=== PATIENT | male | born 1980 | race Asian ===

== ENCOUNTER 2017-05-10 14:12 | Inpatient (IN) | payer MEDICAID ==
[~2017-05-10] VITALS: Ht 165.1 cm; Wt 65.5 kg
[2017-05-10 14:55] LABS: BASOPHILS # (AUTO) 0.08 K/uL (0.00-0.20); EOSINOPHILS # (AUTO) 0.16 K/uL (0.00-0.70); EOSINOPHILS % (AUTO) 1.89 % (1.0-6.0); HEMATOCRIT 47.1 % (41-53); HEMOGLOBIN 16.1 g/dL (13.5-17.5); LYMPHOCYTES # (AUTO) 1.5 K/uL (1.0-4.8); LYMPHOCYTES % (AUTO) 17.6 % (22.0-44.0); MEAN CORPUSCULAR HEMOGLOBIN 30.3 pg (26.0-34.0); MEAN CORPUSCULAR HGB CONC 34.1 G/dL (31.0-37.0); MEAN CORPUSCULAR VOLUME 89 fL (80-100); MONOCYTES # (AUTO) 0.9 K/uL (0.1-1.0); MONOCYTES % (AUTO) 10.3 % (2.0-9.0); NEUTROPHILS # (AUTO) 5.7 K/uL (1.8-7.7); NEUTROPHILS % (AUTO) 69.2 % (40.0-70.0); PLATELET COUNT (AUTO) 303 K/uL (150-450); WHITE BLOOD COUNT (AUTO) 8.2 K/uL (4.5-11.0)
[2017-05-10 15:28] LABS: ANION GAP 7 mmol/L (8-16); CALCIUM, TOTAL 9.3 mg/dL (8.8-10.5); CARBON DIOXIDE 30 mmol/L (22-29); CHLORIDE 102 mmol/L (98-107); CREATININE 1.44 mg/dL (0.60-1.30); GLOMERULAR FILTR. RATE CALC 56 mL/min (>60); POTASSIUM 4.5 mmol/L (3.5-5.1); SODIUM SERUM 139 mmol/L (136-145); UREA NITROGEN, BLOOD 23 mg/dL (7-18)
[2017-05-10 15:35] LABS: ALANINE AMINOTRANSFERASE 45 U/L (12-78); ALBUMIN 4.1 g/dL (3.4-5.0); ASPARTATE AMINOTRANSFERASE 34 U/L (15-37); BILIRUBIN,TOTAL 0.7 mg/dL (0.1-1.0); TOTAL PROTEIN, SERUM 7.9 g/dL (6.4-8.2)
[2017-05-10] MEDS ORDERED: LORazepam 2 MG TABLET PO ONE (16:15)
[2017-05-10] MEDS ORDERED: HALOPERIDOL 5 MG TABLET PO ONE (16:15)
[2017-05-10] MEDS ORDERED: DiphenhydrAMINE HCL 50 MG CAPSULE PO ONE (16:15)
[2017-05-11 14:32] VITALS: BP 156/64
[2017-05-11 17:13] VITALS: BP 129/50
[2017-05-11] MEDS: QUEtiapine FUMARATE 25 MG TABLET PO SCH (17:29)
[2017-05-12 08:38] VITALS: BP 135/83
[2017-05-12] MEDS: QUEtiapine FUMARATE 25 MG TABLET PO SCH ×2 (09:41→16:08)
[2017-05-12] MEDS ORDERED: ONDANSETRON HCL 4 MG TABLET PO PRN (10:00)
[2017-05-12] MEDS ORDERED: PETROLATUM,WHITE 71 GM JELLY TP PRN (10:00)
[2017-05-12] MEDS ORDERED: MAG HYDROX/AL HYDROX/SIMETH ES 30 ML SUSPENSION UDCUP PO PRN (10:00)
[2017-05-12] MEDS ORDERED: ACETAMINOPHEN 325 MG TABLET PO PRN (10:00)
[2017-05-12] MEDS ORDERED: ALBUTEROL SULFATE HFA 90 MCG/PUFF 8 GM INHALER IH PRN (10:00)
[2017-05-12] MEDS ORDERED: CloNIDine HCL 0.1 MG TABLET PO PRN (10:00)
[2017-05-12] MEDS ORDERED: IBUPROFEN 600 MG TABLET PO PRN (10:00)
[2017-05-12] MEDS ORDERED: LOPERAMIDE HCL 2 MG CAPSULE PO PRN (10:00)
[2017-05-12] MEDS ORDERED: BACITRACIN 28.4 GM OINTMENT TP PRN (10:00)
[2017-05-12] MEDS ORDERED: MAGNESIUM HYDROXIDE SUSPENSION 30 ML UDCUP PO PRN (10:00)
[2017-05-12] MEDS ORDERED: BENZOCAINE/MENTHOL LOZENGE [8 LOZENGES/PACKET] MM PRN (10:15)
[2017-05-12 16:15] VITALS: BP 137/86
[2017-05-13 06:48] LABS: ANION GAP 6 mmol/L (8-16); CALCIUM, TOTAL 8.5 mg/dL (8.8-10.5); CARBON DIOXIDE 28 mmol/L (22-29); CHLORIDE 105 mmol/L (98-107); CHOL/HDL RATIO 3.4 (4.2-7.3); CREATININE 1.19 mg/dL (0.60-1.30); GLOMERULAR FILTR. RATE CALC > 60 mL/min (>60); POTASSIUM 4.3 mmol/L (3.5-5.1); SODIUM SERUM 139 mmol/L (136-145); THYROID STIMULATING HORMONE 0.91 uIU/mL (0.36-3.74); UREA NITROGEN, BLOOD 20 mg/dL (7-18)
[2017-05-13 08:57] VITALS: BP 131/74
[2017-05-13] MEDS: QUEtiapine FUMARATE 25 MG TABLET PO SCH ×2 (09:37→16:02)
[2017-05-13] MEDS: ASPIRIN 81 MG EC TABLET PO SCH (09:37)
[2017-05-13 17:12] VITALS: BP 154/104
[2017-05-14 08:35] VITALS: BP 148/98
[2017-05-14] MEDS: ASPIRIN 81 MG EC TABLET PO SCH (09:26)
[2017-05-14] MEDS: QUEtiapine FUMARATE 25 MG TABLET PO SCH ×2 (09:27→16:02)
[2017-05-14 17:18] VITALS: BP 147/102
[2017-05-15] MEDS: ASPIRIN 81 MG EC TABLET PO SCH (08:59)
[2017-05-15] MEDS: QUEtiapine FUMARATE 25 MG TABLET PO SCH ×2 (08:59→16:17)
[2017-05-15] MEDS: CHOLECALCIFEROL (VIT D3) 1,000 UNITS TABLET PO SCH (08:59)
[2017-05-15 09:19] VITALS: BP 150/97
[2017-05-15] MEDS: HALOPERIDOL 5 MG TABLET PO PRN (11:15)
[2017-05-15] MEDS: LORazepam 2 MG TABLET PO PRN (16:17)
[2017-05-15 19:01] VITALS: BP 150/90
[2017-05-16] MEDS: CHOLECALCIFEROL (VIT D3) 1,000 UNITS TABLET PO SCH (08:36)
[2017-05-16] MEDS: QUEtiapine FUMARATE 25 MG TABLET PO SCH ×2 (08:36→16:06)
[2017-05-16] MEDS: ASPIRIN 81 MG EC TABLET PO SCH (08:36)
[2017-05-16 08:45] VITALS: BP 155/91
[2017-05-16] MEDS: LORazepam 2 MG TABLET PO PRN (16:06)
[2017-05-16 16:18] VITALS: BP 154/89
[2017-05-17] VITALS: BP_SYST 161; BP_SYST 162; BP_DIAS 117; BP_DIAS 125
[2017-05-17] MEDS: ZOLPIDEM TARTRATE 10 MG TABLET PO PRN
[2017-05-17] MEDS: LORazepam 2 MG TABLET PO PRN
[2017-05-17 02:57] VITALS: BP 148/99
[2017-05-17 09:41] VITALS: BP 156/96
[2017-05-17] MEDS: LISINOPRIL 20 MG TABLET PO SCH (09:48)
[2017-05-17] MEDS: CHOLECALCIFEROL (VIT D3) 1,000 UNITS TABLET PO SCH (09:48)
[2017-05-17] MEDS: ASPIRIN 81 MG EC TABLET PO SCH (09:48)
[2017-05-17] MEDS: QUEtiapine FUMARATE 25 MG TABLET PO SCH ×2 (09:48→16:26)
[2017-05-17 17:21] VITALS: BP 126/76
[2017-05-18] MEDS: LISINOPRIL 20 MG TABLET PO SCH (09:00)
[2017-05-18] MEDS: ASPIRIN 81 MG EC TABLET PO SCH (09:00)
[2017-05-18] MEDS: CHOLECALCIFEROL (VIT D3) 1,000 UNITS TABLET PO SCH (09:00)
[2017-05-18] MEDS: QUEtiapine FUMARATE 25 MG TABLET PO SCH ×2 (09:00→16:13)
[2017-05-18 13:59] VITALS: BP 138/88
[2017-05-18 16:46] VITALS: BP 112/61
[2017-05-19 00:52] VITALS: BP 148/78
[2017-05-19] MEDS: LORazepam 2 MG TABLET PO PRN ×2 (01:01→16:20)
[2017-05-19] MEDS: ZOLPIDEM TARTRATE 10 MG TABLET PO PRN ×2 (01:02→21:48)
[2017-05-19] MEDS: CHOLECALCIFEROL (VIT D3) 1,000 UNITS TABLET PO SCH (09:27)
[2017-05-19] MEDS: ASPIRIN 81 MG EC TABLET PO SCH (09:27)
[2017-05-19] MEDS: LISINOPRIL 20 MG TABLET PO SCH (09:27)
[2017-05-19] MEDS: QUEtiapine FUMARATE 25 MG TABLET PO SCH ×2 (09:27→16:20)
[2017-05-19 09:58] VITALS: BP 138/87
[2017-05-19 16:30] VITALS: BP 132/76
[2017-05-19] MEDS: HALOPERIDOL 5 MG TABLET PO PRN (19:29)
[2017-05-20] MEDS: ASPIRIN 81 MG EC TABLET PO SCH (10:05)
[2017-05-20] MEDS: LISINOPRIL 20 MG TABLET PO SCH (10:05)
[2017-05-20] MEDS: CHOLECALCIFEROL (VIT D3) 1,000 UNITS TABLET PO SCH (10:05)
[2017-05-20] MEDS: QUEtiapine FUMARATE 25 MG TABLET PO SCH ×2 (10:05→16:21)
[2017-05-20 11:58] VITALS: BP 139/95
[2017-05-20] MEDS: LORazepam 2 MG TABLET PO PRN (16:22)
[2017-05-20 17:00] VITALS: BP 127/74
[2017-05-20] MEDS: HALOPERIDOL 5 MG TABLET PO PRN (18:45)
[2017-05-21 08:44] VITALS: BP 135/71
[2017-05-21] MEDS: ASPIRIN 81 MG EC TABLET PO SCH (09:00)
[2017-05-21] MEDS: CHOLECALCIFEROL (VIT D3) 1,000 UNITS TABLET PO SCH (09:00)
[2017-05-21] MEDS: QUEtiapine FUMARATE 25 MG TABLET PO SCH ×2 (09:00→16:59)
[2017-05-21] MEDS: LISINOPRIL 20 MG TABLET PO SCH (09:01)
[2017-05-21 17:00] VITALS: BP 116/69
[2017-05-21] MEDS: HALOPERIDOL 5 MG TABLET PO PRN (17:46)
[2017-05-22 08:35] VITALS: BP 132/86
[2017-05-22] MEDS: ASPIRIN 81 MG EC TABLET PO SCH (09:11)
[2017-05-22] MEDS: LISINOPRIL 20 MG TABLET PO SCH (09:11)
[2017-05-22] MEDS: CHOLECALCIFEROL (VIT D3) 1,000 UNITS TABLET PO SCH (09:11)
[2017-05-22] MEDS: QUEtiapine FUMARATE 25 MG TABLET PO SCH ×2 (09:11→16:05)
[2017-05-22 17:11] VITALS: BP 134/89
[2017-05-22] MEDS: HALOPERIDOL 5 MG TABLET PO PRN (18:17)
[2017-05-23] MEDS: LISINOPRIL 20 MG TABLET PO SCH (09:04)
[2017-05-23] MEDS: CHOLECALCIFEROL (VIT D3) 1,000 UNITS TABLET PO SCH (09:04)
[2017-05-23] MEDS: ASPIRIN 81 MG EC TABLET PO SCH (09:04)
[2017-05-23] MEDS: QUEtiapine FUMARATE 25 MG TABLET PO SCH (09:05)
[2017-05-23 09:07] VITALS: BP 135/86
[2017-05-23] MEDS ORDERED: QUET25TA PO (13:19)
[2017-05-23] MEDS ORDERED: VITAD1000 PO (13:20)
[2017-05-23] MEDS ORDERED: LISI-662 PO (13:21)
[2017-05-23] MEDS ORDERED: ASPI-1093 PO (13:21)
== END 2017-05-23 15:16 | disposition home or self-care (01) | DRG 750 ==
LOC: EMS 14:13 → EEVIPCON 14:13 → AHU 05-11 08:08 → 3EI 05-11 14:26
PROVIDERS: ADMIT Psychiatry & Neurology Child & Adolescent Psychiatry; ATTEND Psychiatry & Neurology Child & Adolescent Psychiatry
DX: F25.1 Schizoaffective disorder, depressive type (principal); N17.9 Acute kidney failure, unspecified; R45.851 Suicidal ideations; E55.9 Vitamin D deficiency, unspecified; F17.210 Nicotine dependence, cigarettes, uncomplicated; F15.10 Other stimulant abuse, uncomplicated; G47.00 Insomnia, unspecified; K21.9 Gastro-esophageal reflux disease without esophagitis; K59.00 Constipation, unspecified; Z79.82 Long term (current) use of aspirin; Z79.899 Other long term (current) drug therapy; Z86.73 Personal history of transient ischemic attack (TIA), and cerebral infarction without residual deficits; F41.9 Anxiety disorder, unspecified; Z59.0 Homelessness; R03.0 Elevated blood-pressure reading, without diagnosis of hypertension; Z72.89 Other problems related to lifestyle; Z71.41 Alcohol abuse counseling and surveillance of alcoholic; Z71.51 Drug abuse counseling and surveillance of drug abuser
CPT/HCPCS: 82306; 84439; 84443; 99291; 99406; G0480

== ENCOUNTER 2018-01-03 21:21 | Inpatient (IN) | payer MEDICARE, MEDICAID ==
[~2018-01-03] VITALS: Ht 165.1 cm; Wt 73.6 kg
[~2018-01-03 21:21] MED LIST: ASPI-1182 PO; LISI-662 PO; QUET25TA PO; VITAD1000 PO
[2018-01-03 21:57] LABS: BASOPHILS % (AUTO) 0.8 % (0.0-2.0); EOSINOPHILS % (AUTO) 2.1 % (1.0-6.0); HEMATOCRIT 45.7 % (41-53); HEMOGLOBIN 15.6 g/dL (13.5-17.5); LYMPHOCYTES # (AUTO) 1.9 K/uL (1.0-4.8); LYMPHOCYTES % (AUTO) 23.2 % (22.0-44.0); MEAN CORPUSCULAR HEMOGLOBIN 29.9 pg (26.0-34.0); MEAN CORPUSCULAR HGB CONC 34.1 G/dL (31.0-37.0); MEAN CORPUSCULAR VOLUME 88 fL (80-100); MONOCYTES # (AUTO) 0.7 K/uL (0.1-1.0); MONOCYTES % (AUTO) 8.6 % (2.0-9.0); NEUTROPHILS # (AUTO) 5.3 K/uL (1.8-7.7); NEUTROPHILS % (AUTO) 65.3 % (40.0-70.0); PLATELET COUNT (AUTO) 262 K/uL (150-450); RED CELL DISTRIBUTION WIDTH 12.9 % (11.5-14.5)
[2018-01-03 22:05] LABS: AMPHET/METH SCREEN,URINE NEGATIVE (NEGATIVE); BARBITURATE SCREEN, URINE NEGATIVE (NEGATIVE); BENZODIAZEPINES SCREEN,URINE NEGATIVE (NEGATIVE); CANNABINOID SCREEN,URINE NEGATIVE (NEGATIVE); COCAINE SCREEN,URINE NEGATIVE (NEGATIVE); METHADONE SCREEN, URINE NEGATIVE (NEGATIVE); OPIATE SCREEN,URINE NEGATIVE (NEGATIVE)
[2018-01-03 22:08] LABS: PHENCYCLIDINE SCREEN,URINE NEGATIVE (NEGATIVE)
[2018-01-03 22:16] LABS: ALANINE AMINOTRANSFERASE 27 U/L (12-78); ALBUMIN 4.2 g/dL (3.4-5.0); ALKALINE PHOSPHATASE 62 U/L (46-116); ANION GAP 8 mmol/L (8-16); ASPARTATE AMINOTRANSFERASE 21 U/L (15-37); BILIRUBIN,TOTAL 0.5 mg/dL (0.1-1.0); CARBON DIOXIDE 28 mmol/L (22-29); CHLORIDE 99 mmol/L (98-107); CREATININE 1.18 mg/dL (0.60-1.30); GLOMERULAR FILTR. RATE CALC > 60 mL/min (>60); GLUCOSE,RANDOM 124 mg/dL (70-110); POTASSIUM 3.4 mmol/L (3.5-5.1); SODIUM SERUM 135 mmol/L (136-145); TOTAL PROTEIN, SERUM 8.4 g/dL (6.4-8.2)
[2018-01-03 22:30] LABS: ACETAMINOPHEN < 2 mcg/mL (10-30); SALICYLATE 1.2 mg/dL (2.8-20.0)
[2018-01-03 22:51] LABS: UREA NITROGEN, BLOOD 29 mg/dL (7-18)
[2018-01-03] MEDS ORDERED: QUEtiapine FUMARATE 100 MG TABLET PO PRN (23:00)
[2018-01-03] MEDS ORDERED: LORazepam 2 MG TABLET PO PRN (23:00)
[2018-01-03] MEDS ORDERED: ZOLPIDEM TARTRATE 10 MG TABLET PO PRN (23:00)
[2018-01-03 23:50] LABS: CREATINE KINASE MB 2.2 ng/mL (0-5); CREATINE KINASE, TOTAL 210 U/L (39-308)
[2018-01-04] MEDS ORDERED: POTASSIUM CHLORIDE 10 MEQ ER TABLET PO ONE (03:15)
[2018-01-04] MEDS ORDERED: POTASSIUM CHLORIDE 20 MEQ ER TABLET PO ONE (03:15)
[2018-01-04 03:30] LABS: ANION GAP 10 mmol/L (8-16); CALCIUM, TOTAL 8.7 mg/dL (8.8-10.5); CARBON DIOXIDE 28 mmol/L (22-29); CHLORIDE 100 mmol/L (98-107); CREATININE 1.11 mg/dL (0.60-1.30); GLOMERULAR FILTR. RATE CALC > 60 mL/min (>60); GLUCOSE,RANDOM 116 mg/dL (70-110); POTASSIUM 3.4 mmol/L (3.5-5.1); SODIUM SERUM 138 mmol/L (136-145); UREA NITROGEN, BLOOD 26 mg/dL (7-18)
[2018-01-04 03:54] LABS: CHOL/HDL RATIO 3.1 (4.2-7.3); CHOLESTEROL 148 mg/dL (131-200); CREATINE KINASE MB 2.1 ng/mL (0-5); CREATINE KINASE, TOTAL 185 U/L (39-308); HDL CHOLESTEROL 47 mg/dL (40-60); LDL CHOL (CALC.) 69 mg/dL (0-130); TRIGLYCERIDES 162 mg/dL (15-150)
[2018-01-04 04:18] VITALS: BP 140/96
[2018-01-04] MEDS ORDERED: PNEUMOCOCCAL VACCINE POLYVALENT 0.5 ML VIAL [PPSV23] IM ONE (06:30)
[2018-01-04] MEDS ORDERED: SERTRALINE HCL 50 MG TABLET PO SCH (09:00)
[2018-01-04 10:16] VITALS: BP 122/59
[2018-01-04] MEDS ORDERED: PROMETHAZINE HCL 25 MG TABLET PO PRN (12:00)
[2018-01-04] MEDS ORDERED: MAGNESIUM HYDROXIDE SUSPENSION 30 ML UDCUP PO PRN (12:00)
[2018-01-04] MEDS ORDERED: GuaiFENesin/D-METHORPHAN [SUGAR-FREE] 200-20MG/10 ML SYRUP UDCUP PO PRN (12:00)
[2018-01-04] MEDS ORDERED: LOPERAMIDE HCL 2 MG CAPSULE PO PRN (12:00)
[2018-01-04] MEDS ORDERED: HydrOXYzine PAMOATE 50 MG CAPSULE PO PRN (12:00)
[2018-01-04] MEDS ORDERED: MAG HYDROX/AL HYDROX/SIMETH ES 30 ML SUSPENSION UDCUP PO PRN (12:00)
[2018-01-04] MEDS ORDERED: TUBERCULIN, PURIFIED PROTEIN DERIVATIVE 5 TU/0.1 ML SYG ID ONE (12:00)
[2018-01-04] MEDS ORDERED: ACETAMINOPHEN 325 MG TABLET PO PRN (12:00)
[2018-01-04] MEDS: THIAMINE HCL 100 MG TABLET PO SCH (16:23)
[2018-01-04 19:01] VITALS: BP 145/90
[2018-01-04] MEDS: DIVALPROEX SODIUM 500 MG ER TABLET PO SCH (20:28)
[2018-01-04] MEDS ORDERED: QUEtiapine FUMARATE 100 MG TABLET PO SCH (21:00)
[2018-01-05] MEDS: NALTREXONE HCL 50 MG TABLET PO SCH (08:14)
[2018-01-05] MEDS: THIAMINE HCL 100 MG TABLET PO SCH ×2 (08:14→16:38)
[2018-01-05] MEDS: MULTIVITAMINS WITH MINERALS, THERAPEUTIC TABLET PO SCH (08:14)
[2018-01-05] MEDS: FOLIC ACID 1 MG TABLET PO SCH (08:14)
[2018-01-05 08:41] VITALS: BP 141/81
[2018-01-05] MEDS ORDERED: DULoxetine HCL 20 MG CAPSULE PO SCH (09:00)
[2018-01-05 16:22] VITALS: BP 137/85
[2018-01-05] MEDS: DIVALPROEX SODIUM 500 MG ER TABLET PO SCH (20:27)
[2018-01-05] MEDS ORDERED: QUEtiapine FUMARATE 300 MG TABLET PO SCH (21:00)
[2018-01-06] MEDS: FOLIC ACID 1 MG TABLET PO SCH (08:02)
[2018-01-06] MEDS: THIAMINE HCL 100 MG TABLET PO SCH ×2 (08:02→17:50)
[2018-01-06] MEDS: NALTREXONE HCL 50 MG TABLET PO SCH (08:02)
[2018-01-06] MEDS: MULTIVITAMINS WITH MINERALS, THERAPEUTIC TABLET PO SCH (08:02)
[2018-01-06 08:06] VITALS: BP 101/67
[2018-01-06] MEDS ORDERED: DULoxetine HCL 30 MG CAPSULE PO SCH (09:00)
[2018-01-06 18:07] VITALS: BP 110/74
[2018-01-06] MEDS: DIVALPROEX SODIUM 500 MG ER TABLET PO SCH (20:30)
[2018-01-06] MEDS: QUEtiapine FUMARATE 200 MG TABLET PO SCH (20:30)
[2018-01-07] MEDS: NALTREXONE HCL 50 MG TABLET PO SCH (08:14)
[2018-01-07] MEDS: DULoxetine HCL 20 MG CAPSULE PO SCH (08:14)
[2018-01-07] MEDS: MULTIVITAMINS WITH MINERALS, THERAPEUTIC TABLET PO SCH (08:14)
[2018-01-07] MEDS: THIAMINE HCL 100 MG TABLET PO SCH ×2 (08:14→16:08)
[2018-01-07] MEDS: FOLIC ACID 1 MG TABLET PO SCH (08:14)
[2018-01-07 08:15] VITALS: BP 109/69
[2018-01-07 20:23] VITALS: BP 111/74
[2018-01-07] MEDS: DIVALPROEX SODIUM 500 MG ER TABLET PO SCH (20:33)
[2018-01-07] MEDS: QUEtiapine FUMARATE 200 MG TABLET PO SCH (20:33)
[2018-01-08] MEDS: THIAMINE HCL 100 MG TABLET PO SCH ×2 (08:09→16:05)
[2018-01-08] MEDS: MULTIVITAMINS WITH MINERALS, THERAPEUTIC TABLET PO SCH (08:09)
[2018-01-08] MEDS: FOLIC ACID 1 MG TABLET PO SCH (08:09)
[2018-01-08] MEDS: NALTREXONE HCL 50 MG TABLET PO SCH (08:09)
[2018-01-08] MEDS: DULoxetine HCL 20 MG CAPSULE PO SCH (08:09)
[2018-01-08 09:21] VITALS: BP 133/92
[2018-01-08 16:38] VITALS: BP 123/82
[2018-01-08] MEDS: QUEtiapine FUMARATE 200 MG TABLET PO SCH (20:11)
[2018-01-08] MEDS: DIVALPROEX SODIUM 500 MG ER TABLET PO SCH (20:12)
[2018-01-09] MEDS: NALTREXONE HCL 50 MG TABLET PO SCH (08:09)
[2018-01-09] MEDS: DULoxetine HCL 20 MG CAPSULE PO SCH (08:09)
[2018-01-09] MEDS: THIAMINE HCL 100 MG TABLET PO SCH ×2 (08:09→16:15)
[2018-01-09] MEDS: MULTIVITAMINS WITH MINERALS, THERAPEUTIC TABLET PO SCH (08:09)
[2018-01-09] MEDS: FOLIC ACID 1 MG TABLET PO SCH (08:09)
[2018-01-09 10:19] VITALS: BP 119/65
[2018-01-09 16:46] VITALS: BP 142/99
[2018-01-09] MEDS: QUEtiapine FUMARATE 200 MG TABLET PO SCH (20:23)
[2018-01-09] MEDS: DIVALPROEX SODIUM 500 MG ER TABLET PO SCH (20:23)
[2018-01-10] MEDS: DULoxetine HCL 20 MG CAPSULE PO SCH (08:43)
[2018-01-10] MEDS: MULTIVITAMINS WITH MINERALS, THERAPEUTIC TABLET PO SCH (08:44)
[2018-01-10] MEDS: NALTREXONE HCL 50 MG TABLET PO SCH (08:44)
[2018-01-10] MEDS: FOLIC ACID 1 MG TABLET PO SCH (08:44)
[2018-01-10] MEDS: THIAMINE HCL 100 MG TABLET PO SCH ×2 (08:44→16:01)
[2018-01-10 09:51] VITALS: BP 119/72
[2018-01-10 16:15] VITALS: BP 139/96
[2018-01-10] MEDS: DIVALPROEX SODIUM 500 MG ER TABLET PO SCH (20:08)
[2018-01-10] MEDS ORDERED: QUEtiapine FUMARATE 300 MG TABLET PO SCH (21:00)
[2018-01-11] MEDS: NALTREXONE HCL 50 MG TABLET PO SCH (08:12)
[2018-01-11] MEDS: DULoxetine HCL 20 MG CAPSULE PO SCH (08:12)
[2018-01-11] MEDS: THIAMINE HCL 100 MG TABLET PO SCH ×2 (08:12→16:49)
[2018-01-11] MEDS: FOLIC ACID 1 MG TABLET PO SCH (08:12)
[2018-01-11] MEDS: MULTIVITAMINS WITH MINERALS, THERAPEUTIC TABLET PO SCH (08:13)
[2018-01-11 08:15] VITALS: BP 154/94
[2018-01-11 10:12] VITALS: BP 142/78
[2018-01-11] MEDS: DIVALPROEX SODIUM 500 MG ER TABLET PO SCH (16:48)
[2018-01-11 17:10] VITALS: BP 140/65
[2018-01-11] MEDS: QUEtiapine FUMARATE 200 MG TABLET PO SCH (20:08)
[2018-01-12 08:30] VITALS: BP 132/101
[2018-01-12] MEDS: DULoxetine HCL 20 MG CAPSULE PO SCH (08:34)
[2018-01-12] MEDS: DIVALPROEX SODIUM 500 MG ER TABLET PO SCH ×3 (08:34→17:15)
[2018-01-12] MEDS: FOLIC ACID 1 MG TABLET PO SCH (08:34)
[2018-01-12] MEDS: MULTIVITAMINS WITH MINERALS, THERAPEUTIC TABLET PO SCH (08:35)
[2018-01-12] MEDS: THIAMINE HCL 100 MG TABLET PO SCH ×2 (08:35→17:15)
[2018-01-12] MEDS: NALTREXONE HCL 50 MG TABLET PO SCH (08:36)
[2018-01-12 11:53] VITALS: BP 123/83
[2018-01-12 16:37] VITALS: BP 141/93
[2018-01-12] MEDS: QUEtiapine FUMARATE 200 MG TABLET PO SCH (20:54)
[2018-01-13] MEDS: FOLIC ACID 1 MG TABLET PO SCH (08:49)
[2018-01-13] MEDS: DIVALPROEX SODIUM 500 MG ER TABLET PO SCH ×3 (08:49→16:06)
[2018-01-13] MEDS: DULoxetine HCL 20 MG CAPSULE PO SCH (08:49)
[2018-01-13] MEDS: THIAMINE HCL 100 MG TABLET PO SCH ×2 (08:49→16:06)
[2018-01-13] MEDS: NALTREXONE HCL 50 MG TABLET PO SCH (08:49)
[2018-01-13] MEDS: MULTIVITAMINS WITH MINERALS, THERAPEUTIC TABLET PO SCH (08:49)
[2018-01-13 09:36] VITALS: BP 165/110
[2018-01-13 12:29] VITALS: BP 137/90
[2018-01-13 16:43] VITALS: BP 158/105
[2018-01-13] MEDS: QUEtiapine FUMARATE 200 MG TABLET PO SCH (20:30)
[2018-01-14 08:30] VITALS: BP 106/67
[2018-01-14] MEDS: THIAMINE HCL 100 MG TABLET PO SCH (08:56)
[2018-01-14] MEDS: FOLIC ACID 1 MG TABLET PO SCH (08:56)
[2018-01-14] MEDS: MULTIVITAMINS WITH MINERALS, THERAPEUTIC TABLET PO SCH (08:56)
[2018-01-14] MEDS: NALTREXONE HCL 50 MG TABLET PO SCH (08:56)
[2018-01-14] MEDS: DIVALPROEX SODIUM 500 MG ER TABLET PO SCH ×3 (08:56→16:16)
[2018-01-14] MEDS ORDERED: DULoxetine HCL 60 MG CAPSULE PO SCH (09:00)
[2018-01-14] MEDS ORDERED: MULT-1239 PO (14:55)
[2018-01-14] MEDS ORDERED: NALT50TA PO (15:03)
[2018-01-14] MEDS ORDERED: DULO60CA44 PO (15:03)
[2018-01-14] MEDS ORDERED: DIVA500T52 PO (15:03)
[2018-01-14] MEDS ORDERED: QUET200T29 PO (15:03)
== END 2018-01-14 17:50 | DRG 885 ==
LOC: EMS 21:22 → 3EX 23:30
PROVIDERS: ADMIT Psychiatry & Neurology Psychiatry; ATTEND Psychiatry & Neurology Psychiatry
DX: F25.9 Schizoaffective disorder, unspecified (principal); R45.851 Suicidal ideations; Z91.19 Patient's noncompliance with other medical treatment and regimen; F15.90 Other stimulant use, unspecified, uncomplicated; F17.200 Nicotine dependence, unspecified, uncomplicated; F32.9 Major depressive disorder, single episode, unspecified; E55.9 Vitamin D deficiency, unspecified; F80.81 Childhood onset fluency disorder; G47.00 Insomnia, unspecified; G47.30 Sleep apnea, unspecified; I10 Essential (primary) hypertension; I44.0 Atrioventricular block, first degree; Z65.3 Problems related to other legal circumstances; Z79.899 Other long term (current) drug therapy
CPT/HCPCS: 93005; 99285; G0480; G0481